=== PATIENT | male | born 1950 | race Two or more races ===

== ENCOUNTER 2023-07-29 08:17 | Emergency (ER) | payer OTHER ==
[~2023-07-29] VITALS: Ht 190.5 cm; Wt 97.5 kg
== END 2023-07-29 13:07 | disposition home or self-care (01) ==
LOC: ER 08:18
DX: S00.83XA Contusion of other part of head, initial encounter (principal); W19.XXXA Unspecified fall, initial encounter; Y93.89 Activity, other specified; Y92.89 Other specified places as the place of occurrence of the external cause; Y99.8 Other external cause status
CPT/HCPCS: 70200; 96372; 99283; J1885; J2930